=== PATIENT | male | born 1950 | race Caucasian/White ===

== ENCOUNTER → 2017-05-07 | Outpatient (CLI) | payer MEDICARE, OTHER ==
[2016-05-31 01:10] VITALS: BP 132/87
[~2017-05-07] MED LIST: ALPR0.5T PO; CLIN300C8 PO; SULF1TAB24 PO
--- NOTE | 2017-05-07 11:31 | RAD ---
EXAM: CT head without contrast. HISTORY: Fall, headache. TECHNIQUE: Computed tomography of the head was performed without intravenous contrast. COMPARISON: 04/30/2009. FINDINGS: There is no intracranial hemorrhage. [place]-white differentiation is preserved for patient age. Prominence of the lateral ventricles and hemispheric sulci indicate mild atrophy. The visualized paranasal sinuses appear clear. The orbits are unremarkable. A 1 mm metallic density along the right eyelid has been stable chronically. The temporal bones are unremarkable. The calvarium reveals no suspicious lesions. IMPRESSION: 1. No acute intracranial findings. Mild atrophy. *One or more of the following individualized dose reduction techniques were utilized for this examination: 1. Automated exposure control. 2. Adjustment of the mA and/or kV according to patient size. 3. Use of iterative reconstruction technique.
--- NOTE | 2017-05-07 11:50 | RAD ---
EXAM: Right forearm 2 views. HISTORY: Fall. COMPARISON: None. FINDINGS: There is soft tissue swelling along the dorsum of the proximal forearm. No fractures are identified. The joint spaces and alignment of the wrist and elbow appear maintained. IMPRESSION: 1. Soft tissue swelling along the dorsal proximal forearm. No fracture.
== END | disposition home or self-care (01) ==
LOC: CT 11:11
PROVIDERS: ATTEND Family Medicine
DX: S09.90XA Unspecified injury of head, initial encounter (principal); G31.89 Other specified degenerative diseases of nervous system; M85.80 Other specified disorders of bone density and structure, unspecified site; Z86.19 Personal history of other infectious and parasitic diseases; Z87.820 Personal history of traumatic brain injury; X58.XXXA Exposure to other specified factors, initial encounter; Y93.89 Activity, other specified; Y92.89 Other specified places as the place of occurrence of the external cause; Y99.8 Other external cause status
CPT/HCPCS: 70450; 73090